=== PATIENT | male | born 1945 | race Caucasian/White ===

== ENCOUNTER → 2018-01-24 | Outpatient (CLI) | payer OTHER | LOC: FIMAGING 11:07 | PROVIDERS: ATTEND Thoracic Surgery (Cardiothoracic Vascular Surgery) | DX: I25.10 Atherosclerotic heart disease of native coronary artery without angina pectoris (principal); I48.91 Unspecified atrial fibrillation ==

== ENCOUNTER 2018-02-23 05:38 | Inpatient (IN) | payer OTHER ==
[2018-02-23] MEDS ORDERED: niCARdipine/NACL 200 ML IV ONE (06:00)
[2018-02-23] MEDS ORDERED: NOREPINEPHRINE BITARTRATE 16 MG in NS 250 ML IV ONE (06:00)
[2018-02-23] MEDS ORDERED: AMINOCAPROIC ACID 5 GM/20 ML VIAL IV ONE (06:00)
[2018-02-23] MEDS ORDERED: MANNITOL 25% 12.5 GM/50 ML VIAL IVP ONE (06:00)
[2018-02-23] MEDS ORDERED: MUPIROCIN 2% 22 GM OINT NS ONE (06:00)
[2018-02-23] MEDS ORDERED: CITRATE DEXTROSE SOLN 500 ML BAG MISC ONE (06:00)
[2018-02-23] MEDS ORDERED: INSULIN REGULAR HUMAN 100 UNIT in NS 100 ML IV ONE (06:00)
[2018-02-23] MEDS ORDERED: VERAPAMIL 5 MG, NITROGLYCERIN 2.5 MG, HEPARIN 500 UNIT, SODIUM BICARBONATE 0.2 MEQ in L... MISC ONE (06:00)
[2018-02-23] MEDS ORDERED: PHENYLEPHRINE HCL 50 MG in NS 250 ML IV ONE (06:00)
[2018-02-23] MEDS ORDERED: ceFAZolin 2 GM/DEXTROSE 100 ML IV ONE (06:00)
[2018-02-23] MEDS ORDERED: SODIUM BICARBONATE 20 MEQ, LIDOCAINE 1% 10 ML in NORMOSOL-R 1,000 ML MISC ONE (06:00)
[2018-02-23] MEDS ORDERED: LR 1,000 ML IV ONE (06:01)
[2018-02-23] MEDS ORDERED: ALBUMIN 5% 250 ML BOTTLE IV ONE (06:32)
[2018-02-23] MEDS ORDERED: PROTAMINE SULFATE 50 MG/5 ML VIAL IVP ONE (06:32)
[2018-02-23] MEDS ORDERED: NA BICARBONATE 50 MEQ/50 ML VIAL ONE (06:33)
[2018-02-23] MEDS ORDERED: CALCIUM CHLORIDE 1 GM/10 ML INJ ONE (06:33)
[2018-02-23] MEDS ORDERED: MILRINONE/DEXTROSE/100 ML BAG IV ONE (06:33)
[2018-02-23] MEDS ORDERED: CITRATE DEXTROSE SOLN 500 ML BAG ONE (06:34)
[2018-02-23] MEDS ORDERED: HEPARIN 10,000 UNIT/10 ML MDV (1,000 UNIT/ML) ONE (06:34)
[2018-02-23] MEDS ORDERED: DOPamine/DEXTROSE/250 ML BAG IV ONE ×2 (06:34→20:50)
[2018-02-23] MEDS ORDERED: LIDOCAINE 2% 100 MG/5 ML SYR ONE (06:34)
[2018-02-23] MEDS ORDERED: ceFAZolin 1 GM VIAL ONE (06:35)
[2018-02-23] MEDS ORDERED: methylPREDNISolone SOD SUCC 1 GM/8 ML VIAL ONE (06:35)
[2018-02-23] MEDS ORDERED: ADENOSINE 6 MG/2 ML VIAL ONE (06:35)
[2018-02-23] MEDS ORDERED: MAGNESIUM SULFATE 1 GM/2 ML VIAL ONE (06:35)
[2018-02-23] MEDS ORDERED: niCARdipine/NACL/200 ML BAG IV ONE ×2 (06:35→12:45)
[2018-02-23] MEDS ORDERED: AMIODARONE HCL 150 MG/3 ML VIAL ONE (06:35)
[2018-02-23] MEDS ORDERED: NITROGLYCERIN/D5W 50 MG/250 ML BOTTLE IV ONE (06:35)
[2018-02-23] MEDS ORDERED: VERAPAMIL 5 MG/2 ML VIAL ONE (06:51)
[2018-02-23] MEDS ORDERED: PAPAVERINE HCL 60 MG/2 ML SDV ONE (06:51)
[2018-02-23] MEDS ORDERED: MINERAL OIL 10 ML VIAL ONE (06:51)
[2018-02-23] MEDS ORDERED: MIDAZOLAM 2 MG/2 ML VIAL IVP ONE (06:51)
--- NOTE | 2018-02-23 06:53 | PDANEPAE ---
ANE History of Present Illness here for CABG ANE Past Medical History - Cardiovascular History Hx Hypertension: Yes Hx Arrhythmias: Yes Hx Chest Pain: No Hx Coronary Artery / Peripheral Vascular Disease: Yes Hx CHF / Valvular Disease: No Hx Palpitations: No - Pulmonary History Hx COPD: No Hx Asthma/Reactive Airway Disease: No Hx Recent Upper Respiratory Infection: No Hx Oxygen in Use at Home: No Hx Sleep Apnea: No Sleep Apnea Screening Result - Last Documented: Positive - Neurologic History Hx Cerebrovascular Accident: No Hx Seizures: No Hx Dementia: No - Endocrine History Hx Diabetes: No - Renal History Hx Renal Disorders: Yes Renal History Comment: left kidney removed - Liver History Hx Hepatic Disorders: No - Neurological & Psychiatric Hx Hx Neurological and Psychiatric Disorders: Yes Neurological / Psychiatric History Comment: numbness & tingling in both leg, mainly feet - Cancer History Hx Cancer: No - Congenital Disorder History Hx Congenital Disorders: Yes Congenital History Comment: heart disease - GI History Hx Gastrointestinal Disorders: No - Other Health History Other Health History: none - Chronic Pain History Chronic Pain: Yes (lower back) - Surgical History Prior Surgeries: lap choley. hernia repair. left kidney removed ANE Review of Systems Review of Systems: - Exercise capacity METS (RN): 4 METS ANE Patient History - Allergies Allergies/Adverse Reactions: Penicillins Allergy (Verified 02/05/18 15:42) Other-Enter Comments - Home Medications Home medications: home medication list seen and reviewed Home Medications: HYDROCODONE BIT/ACETAMINOPHEN 08/09/15 [Last Taken 02/22/18] Amiodarone HCl 02/05/18 [Last Taken 02/22/18] Atorvastatin Calcium 02/05/18 [Last Taken 02/22/18] Carvedilol 02/05/18 [Last Taken 02/22/18] Eliquis 02/05/18 [Last Taken 02/20/18] Lisinopril 02/05/18 [Last Taken 02/22/18] - NPO status NPO Status: no food or drink >8 hours NPO Since - Liquids (Date): 02/23/18 NPO Since - Liquids (Time): 20:30 NPO Since - Solids (Date): 02/22/18 NPO Since - Solids (Time): 20:30 - Smoking Hx Smoking Status: Former smoker - Family Anes Hx Family Hx Anesthesia Complications: none ANE Labs/Vital Signs - Vital Signs Blood Pressure: 140/74 Heart Rate: 57 Respiratory Rate: 16 O2 Sat (%): 93 Height: 182.88 cm Weight: 78.528 kg ANE Physical Exam - Airway Neck exam: FROM Mallampati Score: Class 1 - Pulmonary Pulmonary: no respiratory distress - Cardiovascular Cardiovascular: regular rate and rhythym - ASA Status ASA Status: IV ANE Anesthesia Plan Anesthesia Plan: general endotracheal anesthesia Lines/Monitors: arterial line, central line
--- NOTE | 2018-02-23 06:54 | PDHPUP ---
History & Physical Update H&P update statement: This history and physical update is based on an assessment of the patient which was completed after admission or registration (within 24 hours), but prior to the surgery/procedure. H&P update: H&P reviewed & patient examined, no change in patient's condition since H&P completed
--- NOTE | 2018-02-23 07:03 | PDANEPAE ---
ANE History of Present Illness here for CABG ANE Past Medical History - Cardiovascular History Hx Hypertension: Yes Hx Arrhythmias: Yes Hx Chest Pain: No Hx Coronary Artery / Peripheral Vascular Disease: Yes Hx CHF / Valvular Disease: No Hx Palpitations: No - Pulmonary History Hx COPD: No Hx Asthma/Reactive Airway Disease: No Hx Recent Upper Respiratory Infection: No Hx Oxygen in Use at Home: No Hx Sleep Apnea: No Sleep Apnea Screening Result - Last Documented: Positive - Neurologic History Hx Cerebrovascular Accident: No Hx Seizures: No Hx Dementia: No - Endocrine History Hx Diabetes: No - Renal History Hx Renal Disorders: Yes Renal History Comment: left kidney removed - Liver History Hx Hepatic Disorders: No - Neurological & Psychiatric Hx Hx Neurological and Psychiatric Disorders: Yes Neurological / Psychiatric History Comment: numbness & tingling in both leg, mainly feet - Cancer History Hx Cancer: No - Congenital Disorder History Hx Congenital Disorders: Yes Congenital History Comment: heart disease - GI History Hx Gastrointestinal Disorders: No - Other Health History Other Health History: none - Chronic Pain History Chronic Pain: Yes (lower back) - Surgical History Prior Surgeries: lap choley. hernia repair. left kidney removed ANE Review of Systems Review of systems is: negative Review of Systems: - Exercise capacity Exercise capacity: <4 METS METS (RN): 4 METS ANE Patient History - Allergies Allergies/Adverse Reactions: Penicillins Allergy (Verified 02/05/18 15:42) Other-Enter Comments - Home Medications Home medications: home medication list seen and reviewed Home Medications: HYDROCODONE BIT/ACETAMINOPHEN 08/09/15 [Last Taken 02/22/18] Amiodarone HCl 02/05/18 [Last Taken 02/22/18] Atorvastatin Calcium 02/05/18 [Last Taken 02/22/18] Carvedilol 02/05/18 [Last Taken 02/22/18] Eliquis 02/05/18 [Last Taken 02/20/18] Lisinopril 02/05/18 [Last Taken 02/22/18] - NPO status NPO Status: no food or drink >8 hours NPO Since - Liquids (Date): 02/23/18 NPO Since - Liquids (Time): 20:30 NPO Since - Solids (Date): 02/22/18 NPO Since - Solids (Time): 20:30 - Anes Hx Anes Hx: no prior problems - Smoking Hx Smoking Status: Former smoker - Family Anes Hx Family Hx Anesthesia Complications: none ANE Labs/Vital Signs - Vital Signs Vital Signs: reviewed preoperatively; see RN documention for details Blood Pressure: 140/74 Heart Rate: 57 Respiratory Rate: 16 O2 Sat (%): 93 Height: 182.88 cm Weight: 78.528 kg ANE Physical Exam - Airway Neck exam: FROM Mallampati Score: Class 1 - Pulmonary Pulmonary: no respiratory distress - Cardiovascular Cardiovascular: regular rate and rhythym - ASA Status ASA Status: IV ANE Anesthesia Plan Anesthesia Plan: general endotracheal anesthesia Lines/Monitors: arterial line, central line, EMMA
[2018-02-23] MEDS ORDERED: fentaNYL 250 MCG/5 ML INJ ONE ×2 (07:07→07:08)
[2018-02-23] MEDS ORDERED: PROPOFOL/EMULSION 500 MG/50 ML BOTTLE IV ONE (07:08)
[2018-02-23] MEDS ORDERED: DEXAMETHASONE 4 MG/ML VIAL ONE ×2 (07:11)
[2018-02-23] MEDS ORDERED: ESMOLOL HCL 100 MG/10 ML VIAL IV ONE (07:11)
[2018-02-23] MEDS ORDERED: ROCURONIUM 100 MG/10 ML VIAL ONE (07:11)
[2018-02-23] MEDS ORDERED: KETAMINE 200 MG/20 ML VIAL ONE (07:49)
[2018-02-23] MEDS ORDERED: ROCURONIUM 50 MG/5 ML VIAL ONE (09:01)
[2018-02-23] MEDS ORDERED: DEXMEDETOMIDINE HCL 400 MCG in NS 100 ML IV SCH (10:00)
[2018-02-23] MEDS ORDERED: SUGAMMADEX SODIUM 200 MG/2 ML VIAL IVP ONE (11:51)
[2018-02-23] MEDS ORDERED: fentaNYL 100 MCG/2 ML INJ ONE (11:59)
[2018-02-23] MEDS ORDERED: PANTOPRAZOLE SODIUM 40 MG VIAL IVP ONE (12:18)
[2018-02-23] MEDS ORDERED: CEPACOL LOZENGE PO PRN (12:18)
[2018-02-23] MEDS ORDERED: SODIUM CL NASAL 45 ML BTL EACHNARE PRN (12:18)
[2018-02-23] MEDS ORDERED: ACETAMINOPHEN 650 MG SUPP PR PRN (12:18)
[2018-02-23] MEDS ORDERED: BISACODYL 10 MG SUPP PR PRN (12:18)
[2018-02-23] MEDS ORDERED: POLYETHYLENE GLYCOL 3350 17 GM PKT PO PRN (12:18)
[2018-02-23] MEDS ORDERED: POTASSIUM Cl (KCl) 50 ML IV PRN (12:18)
[2018-02-23] MEDS ORDERED: MEPERIDINE 25 MG/0.5 ML AMP IVP PRN (12:18)
[2018-02-23] MEDS ORDERED: ONDANSETRON DISINTEGRATING 4 MG TAB PO PRN (12:18)
[2018-02-23] MEDS ORDERED: LACTULOSE 20 GM/30 ML UDCUP PO PRN (12:18)
[2018-02-23] MEDS ORDERED: MAGNESIUM HYDROXIDE 30 ML UDCUP PO PRN (12:18)
[2018-02-23] MEDS ORDERED: HYDROCODONE/APAP 5/325 TAB PO PRN (12:18)
[2018-02-23] MEDS ORDERED: D50W 25 GM/50 ML SYR IVP PRN (12:18)
[2018-02-23] MEDS ORDERED: ACETAMINOPHEN 325 MG TAB PO PRN (12:18)
[2018-02-23] MEDS ORDERED: NS 1,000 ML IV SCH (12:30)
[2018-02-23] MEDS ORDERED: INSULIN REGULAR HUMAN 100 UNIT in NS 100 ML IV SCH (12:30)
[2018-02-23] MEDS ORDERED: PANTOPRAZOLE SODIUM 40 MG VIAL ONE (12:46)
[2018-02-23] MEDS: fentaNYL 100 MCG/2 ML INJ IVP PRN ×6 (13:02→23:44)
--- NOTE | 2018-02-23 13:13 | PDMN ---
Medical Necessity Medical necessity: [facility] IP only surgery; cpt 97404, [id number] CABG/Adhikari Maze IP
--- NOTE | 2018-02-23 14:41 | GOP ---
[f rep st] OPERATIVE REPORT DATE OF OPERATION: 02/23/2018 SURGEON: Trey Mcconnell DO ELECTROPLATING LABORER: Payam Glover P.A.-C. ANESTHESIOLOGIST: Ricci Bowser MD. PREOPERATIVE DIAGNOSIS: 1. Arteriosclerotic heart disease with 3 vessel coronary artery disease. 2. Paroxysmal atrial fibrillation. POSTOPERATIVE DIAGNOSIS: 1. Arteriosclerotic heart disease with 3 vessel coronary artery disease. 2. Paroxysmal atrial fibrillation. PROCEDURE PERFORMED: 1. Coronary artery bypass grafting x4 with left internal mammary artery to the left anterior descend ing, saphenous vein graft to the diagonal, saphenous vein graft to the lateral circumflex, and saphen ous vein graft to the PDA. 2. Adhikari Maze-4 procedure with testing. FINDINGS: Patient presented with a myocardial infarction recently. He was evaluated and found to whelan ve 3-vessel disease. He was subsequently discharged and brought back for elective coronary artery by pass grafting. He also presented with paroxysmal atrial fibrillation at that time of his myocardial infarction. He had no known prior history of that, but was asymptomatic of the atrial fibrillation i tself. DESCRIPTION OF PROCEDURE: He was consented for surgery and brought to the operating room, intubated and monitoring lines were placed. He was prepped and draped in sterile classical manner. Sternotomy was performed. An excellent quality left internal mammary artery was harvested. He was heparinized . Cannulated with bicaval cannulae and tapes and the antegrade cardioplegia catheter. We then perfo rmed sensing and testing for entrance and exit block. Neither were identified in both pulmonary vein s as documented in the report. We then initiated cardiopulmonary bypass and encircled the right pulm onary veins. I then performed multiple ablation lesion sets with 3 crossover lesions with final of e ach set being less than 5 seconds in duration. We then proceeded to do that on the left as well. We then tested both left and right for entrance and exit block and both were confirmed. We then arrest ed the heart with antegrade cardioplegia, topical hypothermia, and systemic cooling. The coronary si nus was marked at the termination of the right and left circumflex vessels with methylene blue. We t hen opened the left atrium in a standard fashion, extending the incisions within 3 of 4 cm of the pul monary ablation line and the left pulmonary veins, which had just been performed. We then did a radi ofrequency pulmonary vein ablation on the roof and floor lesions multiple times until a less than 5 s econds in duration were identified. We then performed the isthmus lesion utilizing cryo for 2 minute s overlapping where the marisabel for the coronary sinus vein was identified. We then did 3 minutes on th e coronary sinus, extending for a short distance onto the ventricle overlapping the isthmus and the c oronary sinus lesions with good transmural freezing noted. We then closed the left atrium. We then proceeded with grafting. Initially, the circumflex which was a good quality 2.5-2.8 mm vessel was gr afted with excellent quality vein, which had been harvested endoscopically from the left leg by Hao lares. This was then brought off the ascending aorta in standard fashion. We then grafted a good q uality PDA, which was 2.83 mm in diameter, bringing the proximal anastomosis off the right side of th e ascending aorta without difficulty. We then proceeded with grafting the 2nd diagonal which was a 1 .5 mm vessel again anastomosing to the ascending aorta and then did the mammary to the distal LAD whe re it measured 2.2 mm without difficulty. It was tacked to the epicardium. We then placed the patie nt in Trendelenburg with suction on the ascending aortic vent and removed the cross-clamp with caval tape secured. We opened the right atrium with a vertical atriotomy, performed radiofrequency lesions in the free wall, superior and inferior vena cava and at 2 o'clock we used cryoablation in the tricu spid isthmus for 3 minutes. The right atrium was closed. We then de-aired the patient through the a pex and ascending aorta. When no further air was identified, he was easily weaned from bypass. The heparin was reversed with protamine. The cannula was removed and oversewn. Two ventricular pacing w ires, 2 pleural and 1 mediastinal drain were placed. The thymic fat and pericardium were closed. Hi s sternum was closed in standard fashion. Patient was returned to ICU in stable condition. /[id number]/MODL
[2018-02-23] MEDS ORDERED: DEXMEDETOMIDINE/NS 4MCG/ML 100 ML BTL IV ONE (15:13)
[2018-02-23] MEDS ORDERED: DEXMEDETOMIDINE IN 0.9 % NACL 100 ML IV SCH (15:30)
[2018-02-23] MEDS: ceFAZolin 2 GM/DEXTROSE 100 ML IV SCH (17:00)
[2018-02-23] MEDS: ALBUMIN 5% 250 ML IV PRN ×4 (17:08→19:26)
--- NOTE | 2018-02-23 19:56 | POSTANESTH ---
Post Anesthetic Evaluation Cardiovascular Status: Normal, Stable Respiratory Status: Normal, Stable Level of Consciousness/Mental Status: Can Participate in Eval Pain Control: Inadeq, Add Tx Required Nausea/Vomiting Control: Adequate, Prn Tx Ordered Complications Possibly Related to Anesthesia: None Noted
[2018-02-23] MEDS ORDERED: ALBUMIN 5% 500 ML IV ONE (20:00)
[2018-02-23] MEDS: METOCLOPRAMIDE 10 MG/2 ML VIAL IVP PRN (21:00)
[2018-02-23] MEDS: ONDANSETRON 4 MG/2 ML VIAL IVP PRN (21:00)
[2018-02-23] MEDS: MUPIROCIN 2% 22 GM OINT NS SCH (21:01)
[2018-02-23] MEDS: SENNOSIDES/DOCUSATE SODIUM TAB PO SCH (21:11)
[2018-02-23] MEDS ORDERED: FUROSEMIDE 20 MG/2 ML VIAL IV ONE (22:30)
[2018-02-23] MEDS ORDERED: ALBUMIN 5% 250 ML IV ONE (22:30)
[2018-02-24] MEDS: fentaNYL 100 MCG/2 ML INJ IVP PRN ×6 (01:10→07:11)
[2018-02-24] MEDS: ceFAZolin 2 GM/DEXTROSE 100 ML IV SCH ×3 (01:11→17:40)
[2018-02-24 04:13] LABS: PLATELET COUNT 152 10^3/uL (150-400)
[2018-02-24 04:31] LABS: INR 1.1 (0.83-1.16); PROTIME(PATIENT) 14.4 SEC (12.0-15.0)
[2018-02-24] MEDS: ONDANSETRON 4 MG/2 ML VIAL IVP PRN (05:00)
[2018-02-24] MEDS: HEPARIN 5,000 UNIT/0.5 ML INJ SC SCH ×3 (06:42→21:29)
--- NOTE | 2018-02-24 08:36 | SOAPPROG ---
SOAP Progress Note Assessment/Plan: Assessment: POD#1 CABG x 4 (KEATING-LAD, SV-D1, SV-PLC, SV-PDA), EVH LLE, Adhikari-Maze IV Sx CAD with preserved LV systolic fx - s/p CABG. Vigorous early postop diuresis req fluid replacement and low dose dopa. Dopa wean in progress. Secondary prevention with ASA, BB and statin when appropriate. PAF/chronically anticoagulated with Eliquis - JR post Maze. Vpaced for optmized hemodynamics. Anticoagulation switched to Coumadin. Target INR 2-3, duration as per Maze protocol. Acute expected blood loss anemia - Stable. No transfusions required. Acute on chronic pain - Hx narc dependence ([place]) for LBP. Postop pain with multimodal analgesia and intensified narc. Consider dilaudid WOOLEN TESTER. Removal of left pleural tube CHIKIS. Hx single kidney - Care with fluid management. Avoid NSAIDs. Plan: Routine POD#1 orders re drains, orals and mobility. Dopa wean to MAP > 65. Colloid for CVP < 8. D/C marcelino once off dopa. Consider reduce VVI to backup rate once off dopa. Optimize pain control. Possible tx to PCU later today. 02/24/18 08:35 Subjective: CTs bothering ventral hernia repair. Hurts to breathe. Low back currently "quiet ". Thirsty. No nausea. Objective: Vital Signs Temp Pulse Resp BP Pulse Ox 37.2 C 82 23 H 112/54 L 97 02/24/18 08:00 02/24/18 08:00 02/24/18 08:00 02/24/18 08:00 02/24/18 08:00 Laboratory Results 02/24/18 04:00 02/23/18 02/24/18 02/25/18 05:59 05:59 05:59 Intake Total 2807 Output Total 3828 330 Balance -1021 -330 PT 14.4 SEC (12.0-15.0) 02/24/18 04:00 INR 1.10 (0.83-1.16) 02/24/18 04:00 Vpaced 80. 10-15 mmHg pressure drop in underlying JR. Dopa @ 2 mcg overnoc for MAP > 70. Vigorous diuresis w stable renal fx. No sig CTOP. CXR -> hypoventilation, no PTX Physical Exam - Physical Exam General Appearance: alert, mild distress (with exam) Respiratory: decreased breath sounds (bases), crackles (bilat), other (Blakes y- d to pleurovac, serosang drainage, no air leak) Cardiac/Chest: regular rate, rhythm (AJR 50s underlying), other (Sternotomy CDI) Abdomen: normal bowel sounds, non-tender, soft Skin: warm/dry Extremities: swelling (trace), other (LLE leg wrap intact) ICD10 Worksheet Patient Problems: Problems Problem Status Onset Acute blood loss anemia Acute Angina pectoris Acute CAD (coronary artery disease) Acute Paroxysmal A-fib Acute S/P ablation of atrial fibrillation Acute S/P coronary artery bypass graft x 4 Acute
[2018-02-24] MEDS: PANTOPRAZOLE SODIUM 40 MG TAB PO SCH (09:08)
[2018-02-24] MEDS: ALBUMIN 5% 250 ML IV PRN ×2 (09:08→09:27)
[2018-02-24] MEDS: SENNOSIDES/DOCUSATE SODIUM TAB PO SCH ×2 (09:08→21:27)
[2018-02-24] MEDS: ASPIRIN 81 MG CHEWABLE TAB PO SCH (09:08)
[2018-02-24] MEDS: MUPIROCIN 2% 22 GM OINT NS SCH ×2 (09:09→21:28)
[2018-02-24] MEDS: HYDROmorphONE/DILAUDID 1 MG/ML INJ IVP PRN ×2 (09:28→13:24)
[2018-02-24] MEDS: HYDROCODONE/APAP 10/325 TAB PO PRN ×3 (09:28→21:27)
[2018-02-24] MEDS: HYDROmorphONE/DILAUDID 2 MG TAB PO PRN ×4 (11:24→22:56)
[2018-02-24] MEDS ORDERED: WARFARIN SODIUM 5 MG TAB PO ONE (16:00)
[2018-02-24] MEDS ORDERED: NS 1,000 ML IV ONE (18:00)
[2018-02-25] MEDS: ceFAZolin 2 GM/DEXTROSE 100 ML IV SCH (01:12)
[2018-02-25] MEDS: HYDROmorphONE/DILAUDID 2 MG TAB PO PRN ×5 (02:58→22:47)
[2018-02-25] MEDS: HYDROCODONE/APAP 10/325 TAB PO PRN ×2 (03:56→09:44)
[2018-02-25] MEDS: HEPARIN 5,000 UNIT/0.5 ML INJ SC SCH ×3 (05:56→22:48)
[2018-02-25 06:18] LABS: INR 1.15 (0.83-1.16); PROTIME(PATIENT) 14.9 SEC (12.0-15.0)
[2018-02-25] MEDS: SENNOSIDES/DOCUSATE SODIUM TAB PO SCH ×2 (07:14→22:47)
[2018-02-25] MEDS: PANTOPRAZOLE SODIUM 40 MG TAB PO SCH (07:14)
[2018-02-25] MEDS: ASPIRIN 81 MG CHEWABLE TAB PO SCH (07:14)
--- NOTE | 2018-02-25 08:40 | SOAPPROG ---
SOAP Progress Note Assessment/Plan: Assessment: POD#2 CABG x 4 (KEATING-LAD, SV-D1, SV-PLC, SV-PDA), EVH LLE, Adhikari-Maze IV Sx CAD with preserved LV systolic fx - s/p CABG. Vigorous early postop diuresis req fluid replacement and low dose dopa. Off pressor support yest. Upward trending SBPs. Secondary prevention with ASA and statin. BB on hold for SB. AntiHTN w ACEI for now. PAF/chronically anticoagulated with Eliquis - JR post Maze. Vpaced for optmized hemodynamics. Recovery of sinus fx yest. Now consistently bradycardic 50s. AF prophylaxis deferred. Anticoagulation switched to Coumadin. Target INR 2-3, duration as per Maze protocol. Acute expected blood loss anemia - Stable. No transfusions required. Acute on chronic pain - Hx narc dependence ([place]) for LBP. Postop pain with multimodal analgesia and intensified narc. Removal of chest tubes CHIKIS. Hx single kidney - Care with fluid management. Avoid NSAIDs. Plan: Ant mediastinal and left pleural tubes removed. Wrap and cap Vwires. Cont coumadin 5 mg daily. Restart lisinopril. 2.5 mg this am. Trial flexeril 10 mg TID prn. Inc activity as tolerated. Tx to PCU. 02/25/18 08:40 Subjective: Better than yesterday, but still having lots of tube pain and periodic low back cramping. Flexeril used successfully in the past and would like to try some. Objective: Vital Signs Temp Pulse Resp BP Pulse Ox 37 C 58 L 20 157/73 H 96 02/25/18 08:00 02/25/18 08:00 02/25/18 08:00 02/25/18 08:00 02/25/18 08:00 Laboratory Results 02/24/18 04:00 02/24/18 12:10 02/24/18 02/25/18 02/26/18 05:59 05:59 05:59 Intake Total 2800 7665 Output Total 3828 1410 Balance -1021 1415 PT 14.9 SEC (12.0-15.0) 02/25/18 05:47 INR 1.15 (0.83-1.16) 02/25/18 05:47 No gtts overnoc. Holding SB 50s. Robust SBPs likely reactive to pain. Borderline suppl O2 req. More balanced I/Os. CTOP approaching removal criteria. INR yet to budge. Physical Exam - Physical Exam General Appearance: alert, no apparent distress Respiratory: decreased breath sounds (bases), other (blakes x 3 to bulb suction , serosang drainage; med and left pl drains removed without incident) Cardiac/Chest: regular rate, rhythm, other (Sternotomy and LLE venotomy CDI. Vwires intact.) Abdomen: non-tender, soft Skin: warm/dry Extremities: other (no visible edema) ICD10 Worksheet Patient Problems: Problems Problem Status Onset Acute blood loss anemia Acute Angina pectoris Acute CAD (coronary artery disease) Acute Paroxysmal A-fib Acute S/P ablation of atrial fibrillation Acute S/P coronary artery bypass graft x 4 Acute
[2018-02-25] MEDS ORDERED: CYCLOBENZAPRINE 10 MG TAB PO SCH (09:15)
[2018-02-25] MEDS ORDERED: LISINOPRIL 2.5 MG TAB PO SCH (09:30)
[2018-02-25] MEDS: MUPIROCIN 2% 22 GM OINT NS SCH (10:24)
[2018-02-25] MEDS: ONDANSETRON 4 MG/2 ML VIAL IVP PRN (11:26)
[2018-02-25] MEDS: METOCLOPRAMIDE 10 MG/2 ML VIAL IVP PRN (11:26)
[2018-02-25] MEDS ORDERED: WARFARIN SODIUM 5 MG TAB PO ONE (16:00)
--- NOTE | 2018-02-25 17:45 | ASMTCMCOM ---
CM Note CM Note Notes: 72yr old male admitted for CAD, Afib-ablation, CP. Has a Hx of recent Ventral hernia repair, Nephrectomy, Chronic back pain-narc dependent and he is a former smoker. This is POD #2 after a CABG x 4. Patient lives with his in [place]. To transfer to PCU. Therapies recommending Cardiac Rehab. Date Signed: 02/25/2018 05:45 PM Electronically Signed By:Briana Harvey LCSW
[2018-02-25] MEDS: CYCLOBENZAPRINE 10 MG TAB PO PRN (22:47)
[2018-02-26] MEDS: HYDROCODONE/APAP 10/325 TAB PO PRN ×4 (05:42→23:21)
[2018-02-26] MEDS: HEPARIN 5,000 UNIT/0.5 ML INJ SC SCH ×3 (05:43→20:06)
[2018-02-26 06:02] LABS: INR 1.47 (0.83-1.16)
--- NOTE | 2018-02-26 06:43 | SOAPPROG ---
SOAP Progress Note Assessment/Plan: Assessment: POD#3 CABG x 4 (KEATING-LAD, SV-D1, SV-PLC, SV-PDA), EVH LLE, Adhikari-Maze IV Sx CAD with preserved LV systolic fx - s/p CABG. Stable early postop course. Secondary prevention with ASA & statin. BB on hold for SB. AntiHTN w ACEI prn. 2 of 3 chest tubes out. PAF/chronically anticoagulated with Eliquis - JR post Maze and Vpaced for optmized hemodynamics. Recovery of sinus fx POD#1. Now consistently bradycardic 50s-60s. AF prophylaxis deferred. Anticoagulation switched to Coumadin. Target INR 2-3, duration as per Maze protocol. Acute expected blood loss anemia - Stable. No transfusions required. VTE prophylaxis with SQ hep until INR > 1.6 Acute on chronic pain - Hx narc dependence ([place]) for LBP. Postop pain with multimodal analgesia and intensified narc. Removal of chest tubes CHIKIS. Hx single kidney - Care with fluid management. Avoid NSAIDs. Plan: Start gentle diuresis. Consider removal right pleural tube later today. Maintain Vwire backup capacity. Decr coumadin to 2.5 mg today. Inc activity as tolerated. Dispo - Anticipate home without services next 1-2 days. 02/26/18 06:39 Subjective: Doing better. Improving mobility. Satisfactory analgesia. Good support network at home and transport to rehab/appts will not be problematic. Objective: Vital Signs Temp Pulse Resp BP Pulse Ox 36.3 C 59 L 12 111/63 97 02/26/18 04:00 02/26/18 04:00 02/26/18 04:00 02/26/18 04:00 02/26/18 04:53 Laboratory Results 02/24/18 04:00 02/26/18 05:45 02/25/18 02/26/18 02/27/18 05:59 05:59 05:59 Intake Total 2825 1000 Output Total 1410 1000 Balance 1415 0 PT 18.0 SEC (12.0-15.0) H 02/26/18 05:45 INR 1.47 (0.83-1.16) H 02/26/18 05:45 Holding SB. No tachycardia. Decr SBP with improved pain control. Slightly positive fluid balance. Rt pleural drain output nearing removal criteria. INR on the rise. - Pending Discharge Pending Discharge Within 48 Hours: Yes Pending Discharge Date: 02/28/18 Pending Discharge Time: 11:00 Physical Exam - Physical Exam General Appearance: alert, no apparent distress Respiratory: normal breath sounds (upper airways), other (skylar to bulb suction , thin serosang drainage) Cardiac/Chest: regular rate, rhythm, other (Sternotomy and LLE venotomy CDI) Abdomen: non-tender, soft Skin: warm/dry Extremities: swelling (trace) ICD10 Worksheet Patient Problems: Problems Problem Status Onset Acute blood loss anemia Acute Angina pectoris Acute CAD (coronary artery disease) Acute Paroxysmal A-fib Acute S/P ablation of atrial fibrillation Acute S/P coronary artery bypass graft x 4 Acute
[2018-02-26] MEDS: PANTOPRAZOLE SODIUM 40 MG TAB PO SCH (08:55)
[2018-02-26] MEDS: ASPIRIN 81 MG CHEWABLE TAB PO SCH (08:55)
[2018-02-26] MEDS: SENNOSIDES/DOCUSATE SODIUM TAB PO SCH ×2 (08:56→20:05)
[2018-02-26] MEDS ORDERED: FUROSEMIDE 40 MG TAB PO ONE (09:00)
[2018-02-26] MEDS ORDERED: POTASSIUM CL 10 MEQ TAB PO ONE (09:00)
[2018-02-26] MEDS ORDERED: WARFARIN SODIUM 2.5 MG TAB PO ONE (16:00)
[2018-02-26] MEDS: ATORVASTATIN CALCIUM 40 MG TAB PO SCH (20:04)
[2018-02-26] MEDS: CYCLOBENZAPRINE 10 MG TAB PO PRN (23:22)
[2018-02-27] MEDS: HEPARIN 5,000 UNIT/0.5 ML INJ SC SCH (05:06)
[2018-02-27] MEDS: HYDROCODONE/APAP 10/325 TAB PO PRN ×2 (05:46→09:12)
[2018-02-27 06:24] LABS: INR 2.06 (0.83-1.16); PROTIME(PATIENT) 23.3 SEC (12.0-15.0)
--- NOTE | 2018-02-27 06:48 | SOAPPROG ---
SOAP Progress Note Assessment/Plan: POD #4: CABG x 4 (KEATING-LAD, SV-D1, SV-PLC, SV-PDA), EVH LLE, Adhikari-Maze IV Sx CAD with preserved LV systolic fx - s/p CABG. Secondary prevention with ASA & statin. BB on hold for SB. All chest tubes out. PAF/chronically anticoagulated with Eliquis - JR post Maze and Vpaced for optmized hemodynamics. Recovery of sinus fx POD#1. Now consistently bradycardic 50s-60s. AF prophylaxis deferred. Anticoagulation switched to Coumadin. Target INR 2-3, duration as per Maze protocol. V-wires remain. Acute expected blood loss anemia - Stable. No transfusions required. VTE prophylaxis with SQ hep until INR > 1.6 Acute on chronic pain - Hx narc dependence ([place]) for LBP. Postop pain with multimodal analgesia and intensified narc. Hx single kidney - Care with fluid management. Avoid NSAIDs. Subjective: Feels well. Denies pain/SOB. Objective: Vital Signs Temp Pulse Resp BP Pulse Ox 36.7 C 63 15 136/71 H 94 02/27/18 04:00 02/27/18 04:00 02/27/18 04:00 02/27/18 04:00 02/27/18 04:00 Laboratory Results 02/27/18 05:45 02/27/18 05:45 02/26/18 02/27/18 02/28/18 05:59 05:59 05:59 Intake Total 1000 1180 Output Total 1060 1710 Balance -60 -530 PT 23.3 SEC (12.0-15.0) H 02/27/18 05:45 INR 2.06 (0.83-1.16) H 02/27/18 05:45 Physical Exam - Physical Exam General Appearance: WD/WN, alert, no apparent distress EENT: normal ENT inspection Neck: normal inspection Respiratory: No respiratory distress Cardiac/Chest: regular rate, rhythm Abdomen: non-tender, soft, No distended Skin: normal color, warm/dry Extremities: No pedal edema Neuro/Psych: no motor/sensory deficits, alert, normal mood/affect, oriented x 3 ICD10 Worksheet Patient Problems: Problems Problem Status Onset Acute blood loss anemia Acute Angina pectoris Acute CAD (coronary artery disease) Acute Chronic Disease Mgmt/Transitional Care Acute Paroxysmal A-fib Acute S/P ablation of atrial fibrillation Acute S/P coronary artery bypass graft x 4 Acute
[2018-02-27] MEDS ORDERED: FUROSEMIDE 40 MG/4 ML VIAL IVP ONE (07:44)
[2018-02-27] MEDS: ASPIRIN 81 MG CHEWABLE TAB PO SCH (09:13)
[2018-02-27] MEDS: PANTOPRAZOLE SODIUM 40 MG TAB PO SCH (09:13)
[2018-02-27] MEDS: SENNOSIDES/DOCUSATE SODIUM TAB PO SCH ×2 (09:13→20:12)
[2018-02-27] MEDS ORDERED: WARFARIN SODIUM 1 MG TAB PO ONE (16:00)
[2018-02-27] MEDS: HYDROCODONE/APAP 5/325 TAB PO PRN ×2 (16:37→20:12)
[2018-02-27] MEDS: ATORVASTATIN CALCIUM 40 MG TAB PO SCH (20:11)
[2018-02-28] MEDS: HYDROCODONE/APAP 5/325 TAB PO PRN (05:36)
[2018-02-28 05:45] LABS: INR 1.76 (0.83-1.16); PROTIME(PATIENT) 20.6 SEC (12.0-15.0)
--- NOTE | 2018-02-28 06:48 | SOAPPROG ---
SOAP Progress Note Assessment/Plan: POD #5: CABG x 4 (KEATING-LAD, SV-D1, SV-PLC, SV-PDA), EVH LLE, Adhikari-Maze IV Sx CAD with preserved LV systolic fx - s/p CABG. Secondary prevention with ASA & statin. BB on hold for SB. PAF/chronically anticoagulated with Eliquis - JR post Maze and Vpaced for optmized hemodynamics. Recovery of sinus fx POD#1. Now consistently bradycardic 50s-60s. AF prophylaxis deferred. Anticoagulation switched to Coumadin. Target INR 2-3, duration as per Maze protocol. Acute expected blood loss anemia - Stable. No transfusions required. VTE prophylaxis with SQ hep until INR > 1.6 Acute on chronic pain - Hx narc dependence ([place]) for LBP. Postop pain with multimodal analgesia and intensified narc. Hx single kidney - Care with fluid management. Avoid NSAIDs. Disposition - home today without services. Subjective: Feels well and ready to go home. Objective: Vital Signs Temp Pulse Resp BP Pulse Ox 36.6 C 63 16 147/79 H 95 02/28/18 04:00 02/28/18 04:00 02/28/18 04:00 02/28/18 04:00 02/28/18 04:00 Laboratory Results 02/27/18 05:45 02/27/18 05:45 02/27/18 02/28/18 03/01/18 05:59 05:59 05:59 Intake Total 1180 1130 Output Total 1710 1750 Balance -530 -620 PT 20.6 SEC (12.0-15.0) H 02/28/18 05:10 INR 1.76 (0.83-1.16) H 02/28/18 05:10 Physical Exam - Physical Exam General Appearance: WD/WN, alert, no apparent distress EENT: No scleral icterus (R), No scleral icterus (L) Neck: normal inspection Respiratory: No respiratory distress Cardiac/Chest: regular rate, rhythm Abdomen: non-tender, soft, No distended Skin: normal color, warm/dry Extremities: No pedal edema Neuro/Psych: no motor/sensory deficits, alert, normal mood/affect, oriented x 3 ICD10 Worksheet Patient Problems: Problems Problem Status Onset Acute blood loss anemia Acute Angina pectoris Acute CAD (coronary artery disease) Acute Chronic Disease Mgmt/Transitional Care Acute Paroxysmal A-fib Acute S/P ablation of atrial fibrillation Acute S/P coronary artery bypass graft x 4 Acute
[2018-02-28] MEDS: PANTOPRAZOLE SODIUM 40 MG TAB PO SCH (07:59)
[2018-02-28] MEDS: SENNOSIDES/DOCUSATE SODIUM TAB PO SCH (07:59)
[2018-02-28] MEDS: ASPIRIN 81 MG CHEWABLE TAB PO SCH (07:59)
--- NOTE | 2018-02-28 11:01 | ASMTDCNOTE ---
Case Management Discharge Discharge Order Complete? Answers: Yes Patient to Obtain Answers: Independently Medications Discharge Comments Notes: 02/28/2018 Case Management Note Pt to d/c independent with [facility] support and cardiac outpatient rehab. Date Signed: 02/28/2018 11:00 AM Electronically Signed By:Marielos Garcia RN
--- NOTE | 2018-02-28 11:01 | ASDISCHSUM ---
Discharge Information Plan Status:Home with No Needs Medically Cleared to Leave:02/28/2018 Discharge Date:02/28/2018 CM D/C Disposition:Home, Routine, Self-Care ADT D/C Disposition:Home, Routine, Self-Care Projected Discharge Date:02/28/2018 Transportation at D/C: Discharge Delay Reason: Follow-Up Date:02/28/2018 Discharge Slot: Final Diagnosis: Placement Information Patient Contact Information Contact Name:SIERRA Relationship: Address:[address] City:[facility] [place] Phone: [facility]/Zip Code:[place] [address] Email: Financial Information Financial Class:Medicare Primary Plan Desc:MEDICARE INPATIENT Primary Plan Number:[id number] Secondary Plan Desc: Secondary Plan Number: Assessment Information LACE LACE Length of stay for Answers: 4-6 days current admission Acuity / Level of Answers: Yes Care: Did the patient have an inpatient admission? Comorbidities - select Answers: Coronary Artery Disease all that apply Other Notes: Coronary arteery bypass x4 # of Emergency department Answers: 0 visits in the last 6 months Score: 10 Date Signed: 02/28/2018 10:59 AM Electronically Signed By:Marielos Garcia RN [facility] CM Progress Note CM Note CM Note Notes: 72yr old male admitted for CAD, Afib-ablation, CP. Has a Hx of recent Ventral hernia repair, Nephrectomy, Chronic back pain-narc dependent and he is a former smoker. This is POD #2 after a CABG x 4. Patient lives with his in [place]. To transfer to [facility]. Therapies recommending Cardiac Rehab. Date Signed: 02/25/2018 05:45 PM Electronically Signed By:Briana Harvey LCSW Case Management Discharge Plan Note Case Management Discharge Discharge Order Complete? Answers: Yes Patient to Obtain Answers: Independently Medications Discharge Comments Notes: 02/28/2018 Case Management Note Pt to d/c independent with famly support and cardiac outpatient rehab. Date Signed: 02/28/2018 11:00 AM Electronically Signed By:Marielos Garcia RN Intervention Information
[2018-02-28 11:07] VITALS: BP 113/54
--- NOTE | 2018-02-28 11:12 | PDDCSUM ---
Discharge Summary Discharge Summary: ADMISSION DATE: 02/23/18 DISCHARGE DATE: 02/28/18 DISCHARGE DIAGNOSES 1. Coronary atherosclerotic disease 2. Paroxysmal atrial fibrillation 3. Acute blood loss anemia 4. Chronic pain PROCEDURES 02/23/18, Trey Mcconnell: 1. CABG x4 (KEATING-LAD, SVG-Diag, SVG-Circ, SVG-PDA) 2. Adhikari-Maze IV 3. EVH left leg HOSPITAL COURSE BY PROBLEM LIST 1. Coronary atherosclerotic disease - s/p CABGx4. Beta-layla avoided d/t bradycardia. Continue ASA, statin for secondary prevention. 2. Paroxysmal atrial fibrillation - s/p Adhikari-Maze IV. Coumadin started for thromboprophylaxis, INR goal 2-3. Duration as per protocol. Amiodarone and beta- blockers avoided d/t bradycardia. 3. Acute blood loss anemia with coagulopathy - no need for transfusions. 4. Chronic pain - pain well-managed. Home medication restarted on d/c. CONDITION Good DISPOSITION Home, self-care ACTIVITY Pt was instructed on sternal precautions, activity limitations, and which problems to call [facility] with. Please see Discharge Plan in chart for specifics. DISCHARGE MEDICATIONS Continue: Atorvastatin Calcium 80 mg PO HS Hydrocodone/Acetaminophen [[place] 7.5-325 Tablet] 1 each PO Q6 PRN New: Acetaminophen [Tylenol 325mg (*)] 325 - 650 mg PO Q4HRS PRN Aspirin [Aspirin 81mg (*)] 81 mg PO DAILY Warfarin Sodium 2.5 mg PO DAILY Stop: Coreg, Lisinopril, Eliquis, Amiodarone PENDING STUDIES/LABS 1. CXR prior to surgical follow-up 2. INR 03/02 with [facility] FOLLOW-UP 1. Trey Mcconnell, 03/06/18, 11:00 AM
== END 2018-02-28 13:49 | disposition home or self-care (01) | DRG 229 ==
LOC: F3N 05:38 → F2N 09:10 → F2W 02-25 14:09
PROVIDERS: ADMIT Thoracic Surgery (Cardiothoracic Vascular Surgery); ATTEND Thoracic Surgery (Cardiothoracic Vascular Surgery)
PROC: 021209W Bypass Coronary Artery, Three Arteries from Aorta with Autologous Venous Tissue, Open Approach (ICD-10-PCS; principal; 2018-02-23 07:15)
PROC: 02580ZZ Destruction of Conduction Mechanism, Open Approach (ICD-10-PCS; principal; 2018-02-23 07:15)
PROC: 02100Z9 Bypass Coronary Artery, One Artery from Left Internal Mammary, Open Approach (ICD-10-PCS; principal; 2018-02-23 07:15)
PROC: 5A1221Z Performance of Cardiac Output, Continuous (ICD-10-PCS; principal; 2018-02-23 07:15)
PROC: 30233N1 Transfusion of Nonautologous Red Blood Cells into Peripheral Vein, Percutaneous Approach (ICD-10-PCS; 2018-02-24)
DX: I25.10 Atherosclerotic heart disease of native coronary artery without angina pectoris (principal); I48.0 Paroxysmal atrial fibrillation; D62 Acute posthemorrhagic anemia; G89.29 Other chronic pain; I10 Essential (primary) hypertension; Z98.1 Arthrodesis status; Z79.01 Long term (current) use of anticoagulants; Z90.5 Acquired absence of kidney
CPT/HCPCS: 82435-PO; 82565-PO; 82947-PO; 84132-PO; 84295-PO; 84520-PO; 85014-PO; 97116-GP; 97162-GP; 97166-GO; 97530-GO; 97535-GO; G8978-GP-CK; G8979-GP-CJ; G8987-GO-CK; G8988-GO-CI; J0153; J0282; J0690; J1100; J1170; J1265; J1644; J1815; J1940; J2001; J2150; J2250; J2260; J2270; J2370; J2405; J2440; J2704; J2720; J2765; J2930; J3010; J3475; J7060; P9016; P9041

== ENCOUNTER → 2018-03-06 | Outpatient (CLI) | payer OTHER | LOC: FIMAGING 10:03 | PROVIDERS: ATTEND Thoracic Surgery (Cardiothoracic Vascular Surgery) | DX: Z09 Encounter for follow-up examination after completed treatment for conditions other than malignant neoplasm (principal); J90 Pleural effusion, not elsewhere classified; J98.11 Atelectasis; Z95.1 Presence of aortocoronary bypass graft; Z86.79 Personal history of other diseases of the circulatory system; Z98.890 Other specified postprocedural states ==

== ENCOUNTER → 2018-09-14 | Outpatient (CLI) | payer OTHER | LOC: CIMAGING 08:42 | PROVIDERS: ATTEND Family Medicine | DX: R07.89 Other chest pain (principal) | CPT/HCPCS: 71046-PO ==